=== PATIENT | female | born 1960 | race Hispanic/Latino ===

== ENCOUNTER 2017-11-20 18:56 | Emergency (ER) | payer OTHER ==
[~2017-11-20] VITALS: Ht 152.4 cm; Wt 59.9 kg
[2017-11-20] MEDS ORDERED: CLONIDINE HCL 0.2 MG TAB PO ONE (19:30)
[2017-11-20] MEDS ORDERED: ONDANSETRON HCL INJ 2 MG/ML VIAL IV STA (19:37)
[2017-11-20] MEDS ORDERED: PANTOPRAZOLE 40 MG 10ML VIAL IV STA (19:37)
[2017-11-20] MEDS ORDERED: KETOROLAC TROMETHAMINE 30 MG/ML VIAL IV STA (19:37)
[2017-11-20 20:01] LABS: BASOPHILS # (AUTO) 0.1 (0.0-0.1); BASOPHILS % 0.8 % (0.0-1.0); EOSINOPHILS # (AUTO) 0.2 (0.0-0.4); EOSINOPHILS % 2.9 % (0.0-6.0); HEMATOCRIT 38.3 % (34.2-44.1); HEMOGLOBIN 13.5 g/dL (12.0-16.0); LYMPHOCYTES # (AUTO) 2.1 (1.0-3.2); LYMPHOCYTES % 32.9 % (18.0-39.1); MEAN CORPUSCULAR HEMOGLOBIN 31.2 pg (28-32); MEAN CORPUSCULAR HGB CONC 35.2 g/dL (31-35); MEAN CORPUSCULAR VOLUME 88.5 fL (81-99); MONOCYTES # (AUTO) 0.5 (0.2-0.8); MONOCYTES % 7.5 % (4.4-11.3); NEUTROPHILS # (AUTO) 3.5 (2.1-6.9); NEUTROPHILS % 55.7 % (38.7-80.0); PLATELET COUNT 278 x10e3/uL (140-360); RED BLOOD COUNT 4.33 x10e6/uL (3.6-5.1); RED CELL DISTRIBUTION WIDTH 11.9 % (11.7-14.4)
[2017-11-20 20:13] LABS: INR 0.96
[2017-11-20 20:14] LABS: PARTIAL THROMBOPLASTIN TIME 30.9 seconds (23.8-35.5)
[2017-11-20 20:21] LABS: ALANINE AMINOTRANSFERASE 30 IU/L (0-55); ALBUMIN 5.2 g/dL (3.5-5.0); ALBUMIN/GLOBULIN RATIO 1.2 (0.8-2.0); ALKALINE PHOSPHATASE 65 IU/L (40-150); BLOOD UREA NITROGEN 10 mg/dL (7-26); BUN/CREATININE RATIO 12 (6-25); CALCIUM 10.3 mg/dL (8.4-10.2); CARBON DIOXIDE 26 mmol/L (22-29); CHLORIDE 97 mmol/L (98-107); CREATINE KINASE 86 IU/L (29-168); CREATININE, SERUM 0.81 mg/dL (0.57-1.11); EST GLOMERULAR FILTRATION RATE > 60 ML/MIN (60-); GLUCOSE 99 mg/dL (74-118); SODIUM 136 mmol/L (136-145)
[2017-11-20 20:49] LABS: BILIRUBIN,URINE NEGATIVE (NEGATIVE); CLARITY,URINE CLEAR (CLEAR); COLOR,URINE YELLOW (YELLOW); KETONES,URINE NEGATIVE (NEGATIVE); LEUKOCYTE ESTERASE ,URINE NEGATIVE (NEGATIVE); NITRITE,URINE NEGATIVE (NEGATIVE); PROTEIN,URINE DIPSTICK NEGATIVE (NEGATIVE); URINE UROBILINOGEN 0.2 mg/dL (0.2 - 1)
[2017-11-20 21:04] LABS: MUCUS,URINE FEW (RARE); RBC,URINE 0-5 /HPF (0-5); WBC,URINE (MAN) 0-5 /HPF (0-5)
--- NOTE | 2017-11-20 21:38 | Diagnostic Imaging Report ---
EXAMINATION: CHEST 2 VIEWS INDICATION: Chest pain, headache COMPARISON: None FINDINGS: TUBES and LINES: None. LUNGS: Lungs are well inflated. Lungs are clear. There is no evidence of pneumonia or pulmonary edema. PLEURA: No pleural effusion or pneumothorax. HEART AND MEDIASTINUM: The cardiomediastinal silhouette is unremarkable. BONES AND SOFT TISSUES: No acute osseous lesion. Soft tissues are unremarkable. UPPER ABDOMEN: No free air under the diaphragm. IMPRESSION: No acute thoracic abnormality. Signed by: Dr. Jesus Gross M.D. on 11/20/2017 9:34 PM
--- NOTE | 2017-11-20 21:59 | Diagnostic Imaging Report ---
EXAMINATION: Head CT without contrast. HISTORY: Headache, history of colon and breast cancer. COMPARISON:None. TECHNIQUE: Multidetector axial images were obtained from the foramen magnum to the vertex without contrast. The images were reconstructed using brain and bone algorithms. Thin section brain images were reformatted into coronal and sagittal planes. Intravenous contrast: None IMAGE QUALITY: Acceptable. FINDINGS: Skull/scalp: No lytic or blastic. lesions. No surgical changes. Parenchyma: No abnormal density. No acute hemorrhage, mass or acute major vascular territorial infarct. Arteries: No density suggestive of thrombosis. Dural sinuses: No abnormal density suggestive of thrombosis. Ventricles: No hydrocephalus or displacement. Extra-axial spaces: No abnormal density. Brain volume: Normal for age. Craniocervical junction: No mass, Chiari malformation, or basilar invagination. Sella: No mass. Paranasal/mastoid sinuses: Imaged portions unremarkable. IMPRESSION: No intracranial abnormality. However suboptimal evaluation for metastasis due to lack of intravenous contrast. If there is clinical concern for metastasis consider follow-up with MRI of the brain with and without contrast. A preliminary report was informed to Dr. Tadeo by phone at 8:30 PM on 11/20/2017. Signed by: Dr. Jayde Zhu M.D. on 11/20/2017 9:56 PM
[2017-11-20 23:53] VITALS: BP 120/87
== END 2017-11-20 23:59 | disposition home or self-care (01) ==
LOC: ER 18:56
DX: R51 Headache (principal); R07.89 Other chest pain; S46.812A Strain of other muscles, fascia and tendons at shoulder and upper arm level, left arm, initial encounter; I10 Essential (primary) hypertension
CPT/HCPCS: 36415; 70450; 71046; 80053; 81001; 82550; 82553; 83735; 84484; 85025; 85610; 85730; 87086; 93005; 99284

== ENCOUNTER 2025-04-26 08:18 | Inpatient (IN) | payer OTHER ==
[2025-04-26] VITALS (8 sets, daily range): BP systolic 126–137; BP diastolic 76–91; PULSE 93–101; RESP 16–18; TEMP 98–101.5; O2SAT 96–97
[~2025-04-26] VITALS: Ht 152.4 cm; Wt 59.9 kg
[2025-04-26 09:14] LABS: BASOPHILS % 0.2 % (0.0-1.0); EOSINOPHILS % 0.9 % (0.0-6.0); LYMPHOCYTES % 5.2 % (18.0-39.1); MONOCYTES % 9.0 % (4.4-11.3); NEUTROPHILS % 84.5 % (38.7-80.0); RED CELL DISTRIBUTION WIDTH 12.3 % (11.7-14.4)
[2025-04-26 09:42] LABS: EST GLOMERULAR FILTRATION RATE 83.0 ML/MIN (>=60)
[2025-04-26 09:52] LABS: LEUKOCYTE ESTERASE ,URINE NEGATIVE (NEGATIVE); PROTEIN,URINE DIPSTICK 2+ (NEGATIVE); URINE UROBILINOGEN 0.2 mg/dL (0.2 - 1)
[2025-04-26 10:05] LABS: EPITHELIAL CELLS,URINE FEW /LPF
[2025-04-26] MEDS: SODIUM CHLORIDE 0.9% 1000ML 1,000 ML IV SCH ×2 (10:59→16:18)
[2025-04-26] MEDS ORDERED: DEXTROSE 50% SYRINGE 50 ML IV PRN (13:45)
[2025-04-26] MEDS ORDERED: POTASSIUM CHLORIDE 20 MEQ TAB CR PO PRN (13:45)
[2025-04-26] MEDS ORDERED: LIDOCAINE 4% PATCH TP PRN (13:45)
[2025-04-26] MEDS ORDERED: DOCUSATE SODIUM 100 MG CAP PO PRN (13:45)
[2025-04-26] MEDS ORDERED: HYDRALAZINE HCL 20 MG/ML VIAL IV PRN (13:45)
[2025-04-26] MEDS ORDERED: MELATONIN 5 MG TABLET PO PRN (13:45)
[2025-04-26] MEDS ORDERED: SIMETHICONE 80 MG CHEW PO PRN (13:45)
[2025-04-26] MEDS ORDERED: ALBUTEROL/IPRATROPIUM 3 ML NEB NEB PRN (13:45)
[2025-04-26] MEDS ORDERED: BENZONATATE 100 MG CAP PO PRN (13:45)
[2025-04-26] MEDS ORDERED: DIPHENHYDRAMINE HCL 25 MG CAP PO PRN (13:45)
[2025-04-26] MEDS: ACETAMINOPHEN 325 MG TAB PO PRN (16:00)
[2025-04-26] MEDS: ENOXAPARIN SOD INJ 40 MG/0.4 ML SYR SC SCH (16:19)
[2025-04-26] MEDS ORDERED: LOSARTAN POTASS25 MG PO (16:30)
[2025-04-26] MEDS ORDERED: CARVEDILOL12.5 MG PO (16:31)
[2025-04-26] MEDS ORDERED: AMLODIPINE BESYL5 MG PO (16:31)
[2025-04-26] MEDS ORDERED: ATORVASTATIN CA20 MG PO (16:31)
[2025-04-26] MEDS ORDERED: IOPAMIDOL 370 MG/ML 100 ML INFUS..BTL INJ ONE (16:48)
[2025-04-27] VITALS (10 sets, daily range): BP systolic 129–155; BP diastolic 86–99; PULSE 72–104; RESP 18–20; TEMP 97.9–99.5; O2SAT 95–99
[2025-04-27 06:38] LABS: BASOPHILS % 0.2 % (0.0-1.0); EOSINOPHILS % 1.4 % (0.0-6.0); LYMPHOCYTES % 20.9 % (18.0-39.1); MONOCYTES % 19.3 % (4.4-11.3); NEUTROPHILS % 58.0 % (38.7-80.0); RED CELL DISTRIBUTION WIDTH 12.4 % (11.7-14.4)
[2025-04-27 07:10] LABS: EST GLOMERULAR FILTRATION RATE 99.0 ML/MIN (>=60)
[2025-04-27] MEDS: PANTOPRAZOLE SOD 40 MG TABEC PO SCH (08:20)
[2025-04-27] MEDS ORDERED: SODIUM CHLORIDE 0.9% 100 ML ONE (11:47)
[2025-04-27] MEDS ORDERED: IOPAMIDOL 370 MG/ML 100 ML INFUS..BTL INJ ONE (11:47)
[2025-04-27 15:12] LABS: EST GLOMERULAR FILTRATION RATE 97.0 ML/MIN (>=60)
[2025-04-27] MEDS: LOSARTAN POTASSIUM 100 MG TAB PO SCH (16:58)
[2025-04-27] MEDS: CARVEDILOL 12.5 MG TAB PO SCH (16:59)
[2025-04-27] MEDS: AMLODIPINE BESYLATE 5 MG TAB PO SCH (16:59)
[2025-04-27] MEDS: SODIUM CHLORIDE 1 GM TAB PO SCH (20:45)
[2025-04-27] MEDS: ATORVASTATIN 20 MG TAB PO SCH (20:45)
[2025-04-27] MEDS: ONDANSETRON HCL INJ 2MG/ML 2ML 2 MG/ML VIAL IV PRN (21:18)
[2025-04-28] VITALS (10 sets, daily range): BP systolic 125–139; BP diastolic 79–90; PULSE 69–98; RESP 12–18; TEMP 96.9–99.6; O2SAT 96–100
[2025-04-28 05:47] LABS: BASOPHILS % 0.7 % (0.0-1.0); EOSINOPHILS % 2.9 % (0.0-6.0); LYMPHOCYTES % 41.5 % (18.0-39.1); MONOCYTES % 19.0 % (4.4-11.3); NEUTROPHILS % 35.6 % (38.7-80.0); RED CELL DISTRIBUTION WIDTH 12.2 % (11.7-14.4)
[2025-04-28 06:25] LABS: CHOL/HDL RATIO 4.8 (3.0-3.6); EST GLOMERULAR FILTRATION RATE 97.0 ML/MIN (>=60); LDL CHOLESTEROL 128.0 MG/DL (60-130)
[2025-04-29] VITALS (9 sets, daily range): BP systolic 121–132; BP diastolic 76–86; PULSE 75–89; RESP 16–20; TEMP 98–98.8; O2SAT 96–100
[2025-04-29 06:45] LABS: BASOPHILS % 0.6 % (0.0-1.0); EOSINOPHILS % 7.0 % (0.0-6.0); LYMPHOCYTES % 48.3 % (18.0-39.1); MONOCYTES % 11.1 % (4.4-11.3); NEUTROPHILS % 32.7 % (38.7-80.0); RED CELL DISTRIBUTION WIDTH 12.3 % (11.7-14.4)
[2025-04-29 07:17] LABS: EST GLOMERULAR FILTRATION RATE 89.0 ML/MIN (>=60)
[2025-04-29 19:01] LABS: OSMOLALITY,URINE 354 mOsmol/kg (.)
[2025-04-30 21:26] LABS: OSMOLALITY,SERUM OSMOMETER 274 mOsmol/kg (280-301)
== END 2025-04-29 17:15 | disposition home or self-care (01) | DRG 641 ==
LOC: ER 08:31 → ERHOLD 10:17 → MED/SURG2 14:14 → OBSVTOIN 04-27 01:48
PROVIDERS: ADMIT Internal Medicine; ATTEND Internal Medicine
DX: E86.0 Dehydration (principal); K56.609 Unspecified intestinal obstruction, unspecified as to partial versus complete obstruction; E87.1 Hypo-osmolality and hyponatremia; I95.1 Orthostatic hypotension; J06.9 Acute upper respiratory infection, unspecified; I10 Essential (primary) hypertension; E78.00 Pure hypercholesterolemia, unspecified; E04.1 Nontoxic single thyroid nodule; M19.90 Unspecified osteoarthritis, unspecified site; Z79.82 Long term (current) use of aspirin; Z85.038 Personal history of other malignant neoplasm of large intestine; Z90.49 Acquired absence of other specified parts of digestive tract; Z85.3 Personal history of malignant neoplasm of breast; Z90.710 Acquired absence of both cervix and uterus; Z90.12 Acquired absence of left breast and nipple; Z88.5 Allergy status to narcotic agent; Z88.8 Allergy status to other drugs, medicaments and biological substances; Z82.49 Family history of ischemic heart disease and other diseases of the circulatory system; E66.9 Obesity, unspecified; Z68.25 Body mass index [BMI] 25.0-25.9, adult
CPT/HCPCS: 36415; 70450; 70496; 70498; 70551; 71045; 71275; 80048; 80053; 80061; 81001; 83036; 83735; 83880; 83930; 83935; 84300; 84443; 84484; 84550; 85025; 87040; 87086; 93005; 93306; 93880; 94799; 95819; 99284; G0378; J0696; J1650; J2405; J2470; J7030; J7050; Q9967